=== PATIENT | female | born 1995 | race Caucasian/White ===

== ENCOUNTER 2020-07-25 15:45 | Emergency (ER) | payer OTHER ==
[~2020-07-25] VITALS: Ht 167.6 cm; Wt 70.3 kg
[2020-07-25 15:51] VITALS: Ht 167.6 cm; Wt 70.3 kg
[2020-07-25 16:25] LABS: UA SPECIFIC GRAVITY >=1.030 (1.005-1.035); microscopic required? YES; urine erythrocyte TRACE (NEGATIVE)
[2020-07-25 16:27] LABS: BASOPHIL % 0.4 % (0.2-1.3); PLATELET COUNT 263 x10^3mcL (179-408); RED CELL DISTRIBUTION WIDTH 14.4 % (12.3-17.7)
[2020-07-25] MEDS ORDERED: KEF500 PO (17:26)
[2020-07-25 18:05] VITALS: BP 111/67
== END 2020-07-25 18:06 | disposition home or self-care (01) ==
LOC: ED 15:45
PROVIDERS: Student in an Organized Health Care Education/Training Program
DX: O26.851 Spotting complicating pregnancy, first trimester (principal); N93.9 Abnormal uterine and vaginal bleeding, unspecified; Z3A.01 Less than 8 weeks gestation of pregnancy